=== PATIENT | male | born 2000 | race Caucasian/White ===

== ENCOUNTER 2018-03-29 23:53 | Emergency (ER) | payer BC ==
--- NOTE | 2018-03-30 01:08 | EDPHY ---
H & P Stated Complaint: HEADACHE WITH EPISODE OF WORD SALAD. RESOLVED Time Seen by Provider: 03/30/18 00:14 HPI/ROS: HPI The patient presents with headache and episode of difficulty speaking. The patient was playing basketball with friends for 2 hr earlier tonight. He was feeling well during that time. When he returned home he was looking at his phone and said he had difficulty reading the words. When he tried to read them allowed about every 3rd word was slurred and he could not make sense of what he was reading. This occurred at about 11:00 p.m. At night. It lasted for 10-15 minutes and then improved on its own. Shortly thereafter he developed a left frontal dull headache which came on slowly and is mild. He has never had a headache like this before. He has been feeling well lately. His mother has a history of migraines.. REVIEW OF SYSTEMS 10 systems were reviewed and negative with the exception of the elements mentioned in the history of present illness. PMHx: Healthy, no medications Soc Hx: College student PHYSICAL General Appearance: Alert, no distress Eyes: Pupils equal and round no pallor or injection ENT, Mouth: Mucous membranes moist Respiratory: There are no retractions, lungs are clear to auscultation Cardiovascular: Regular rate and rhythm Gastrointestinal: Abdomen is soft and non-tender, no masses, bowel sounds normal Neurological: A&O x3, cranial nerves 2-12 intact, 5/5 strength in upper and lower extremities which is symmetric, normal finger to nose and heel to de la o testing Skin: Warm and dry, no rashes Musculoskeletal: Neck is supple non tender Extremities: symmetrical, full range of motion Psychiatric: Patient is oriented X 3, there is no agitation Source: Patient Exam Limitations: No limitations - Personal History Current Tetanus/Diphtheria Vaccine: Yes Current Tetanus Diphtheria and Acellular Pertussis (TDAP): Yes - Medical/Surgical History Hx Asthma: No Hx Chronic Respiratory Disease: No Hx Diabetes: No Hx Cardiac Disease: No Hx Renal Disease: No Hx Cirrhosis: No Hx Alcoholism: No Hx HIV/AIDS: No Hx Splenectomy or Spleen Trauma: No Other PMH: DENIES - Social History Smoking Status: Never smoked Constitutional: Initial Vital Signs Temperature (C) 37.6 C 03/29/18 23:57 Heart Rate 82 03/29/18 23:57 Respiratory Rate 16 03/29/18 23:57 Blood Pressure 152/91 H 03/29/18 23:57 O2 Sat (%) 97 03/29/18 23:57 O2 Delivery Mode Room Air Allergies/Adverse Reactions: amoxicillin Allergy (Verified 03/30/18 00:02) Home Medications: Medication Instructions Recorded NK [No Known Home Meds] 03/30/18 Medical Decision Making - Diagnostics Imaging Results: Imaging Impressions Head CT 03/30/18 00:33 Impression: There is no acute intracranial abnormality identified on this unenhanced CT evaluation. If there is further clinical concern regarding the patient's symptoms, MR imaging is suggested, if not otherwise contraindicated. Findings were discussed with Gunjan Lyle MD at 0:59, on 03/30/2018. Imaging: Discussed imaging studies w/ call centre supervisor Radiologist, I viewed and interpreted images myself Differential Diagnosis: This is a 18-year-old healthy male who presents from home with an episode of difficulty speaking and reading lasting for about 15 min followed by slow onset of a unilateral throbbing mild headache. On exam currently he has a normal neurologic exam and is quite well-appearing with normal vital signs. Differential diagnosis includes subarachnoid hemorrhage, atypical migraine, tension type headache. In the emergency department CT scan of head was performed and was unremarkable. Given that his symptoms have been present for less than 6 hr we should not need to perform LP. Departure - Departure Disposition: Home, Routine, Self-Care Clinical Impression: Word finding problem Headache Qualifiers: Headache type: unspecified Headache chronicity pattern: acute headache Intractability: not intractable Qualified Code(s): R51 - Headache Condition: Good Instructions: Migraine Headache (ED) Additional Instructions: I recommend you take ibuprofen 400 mg every 6 hr as needed for your headache. You should return to the emergency department if your worse in any way. Because of the troubles with your vision I do recommend you see a neurologist and I have listed some information for local clinic. Referrals: [facility] [Outside] - As per Instructions
[2018-03-30 01:16] VITALS: BP 130/80
== END 2018-03-30 01:16 | disposition home or self-care (01) ==
DX: R51 Headache (principal); R47.9 Unspecified speech disturbances